=== PATIENT | female | born 1980 | race Caucasian/White ===

== ENCOUNTER 2025-09-08 14:20 | Emergency (ER) | payer BC ==
[2025-09-08 15:06] LABS: #Basophils 0.2 thou/uL (0.0-0.2); #Eosinophils 0.1 thou/uL (0.0-0.7); #Lymphocytes 2.5 thou/uL (1.20-3.40); #Monocytes 0.6 thou/uL (0.11-0.59); #Neutrophils 7.1 thou/uL (1.40-6.50); %Basophils 1.7 % (0.0-1.0); %Eosinophils 0.9 % (0.0-10.0); %Lymphocytes 23.8 % (21.0-51.0); %Monocytes 5.9 % (0.0-10.0); %Neutrophils 67.8 % (42.0-75.0); Hematocrit 42.3 % (36.0-47.0); Hemoglobin 14.4 g/dL (12.0-16.0); Mean Corpuscular Hemoglobin 29.7 pg (27.0-31.0); Mean Corpuscular Volume 87.3 fl (78.0-98.0); Platelet Count 393 10x3/uL (130-400); Red Blood Cell (RBC) Count 4.85 mill/uL (4.20-5.40); White Blood Cell (WBC) Count 10.5 10x3/uL (4.8-10.8)
[2025-09-08 15:15] LABS: ALT (SGPT) 24 U/L (Less than 34); AST (SGOT) 18 U/L (11-34); Albumin 4.2 g/dL (3.1-4.5); Alkaline Phosphatase 90 U/L (40-110); Anion Gap 17 mmol/L (10-20); BHCG - Serum Negative (NEGATIVE); BUN (Urea Nitrogen) 15 mg/dL (7.0-18.7); Bilirubin, Total 0.4 mg/dL (0.3-1.2); Calc. Creatinine Clearance 0 mL/min (70-130); Calcium 9.5 mg/dL (7.8-10.44); Carbon Dioxide 21 mmol/L (22-29); Chloride 107 mmol/L (98-107); Globulin 3.3 g/dL (2.4-3.5); Glucose 95 mg/dL (70-105); Magnesium 2.0 mg/dL (1.6-2.6); Potassium 3.7 mmol/L (3.5-5.1); Pregs Control Background? CLEAR/WHITE (CLR/WHITE); Pregs Control Bar Appear? YES (CONTROL BAR); Sodium 141 mmol/L (136-145)
[2025-09-08 15:17] LABS: Troponin I Less than 0.010 ng/mL (< 0.028)
== END 2025-09-08 15:40 | disposition home or self-care (01) ==
LOC: BURERS 14:20
DX: R07.89 Other chest pain (principal); R00.2 Palpitations
CPT/HCPCS: 71045; 80053; 83735; 84484; 84703; 85025; 85379; 93005; 94760